=== PATIENT | female | born 2005 | race Caucasian/White ===

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

== ENCOUNTER 2024-08-22 10:33 | Emergency (ER) | payer BC ==
[~2024-08-22] VITALS: Ht 160 cm; Wt 43.6 kg
[2024-08-22 10:38] VITALS: TEMP 98.3
[2024-08-22] MEDS ORDERED: Ondansetron 4 MG/2 ML VIAL IV ONE (11:00)
[2024-08-22] MEDS ORDERED: Acetaminophen 325 MG TAB PO ONE (11:00)
[2024-08-22] MEDS ORDERED: Dicyclomine 10 MG/ML 2 ML VIAL IM ONE (11:00)
[2024-08-22] MEDS ORDERED: NS 1,000 ML IV ONE (11:00)
[2024-08-22 11:13] LABS: HEMOGLOBIN 14.9 g/dl (12.5-16.0); MEAN CELL VOLUME 84 fl (80.0-100.0); MEAN CORPUSCULAR HEMOGLOBIN 29 pg (27-31); MEAN CORPUSCULAR HGB CONC 35 g/dl (33.0-37.0); MEAN PLATELET VOLUME 8.6 fl (7.4-10.4); PLATELET COUNT 389 K/mm3 (130-400); RED BLOOD COUNT 5.12 M/mm3 (4.10-5.30); REDCELL DISTRIBUTION WIDTH-CV 13.8 % (11.5-14.5)
[2024-08-22 11:27] LABS: ALBUMIN 4.5 g/dL (3.5-5.0); BILIRUBIN,TOTAL 1.1 mg/dL (0.2-1.2); C-REACTIVE PROTEIN 2.68 mg/dL (0.00-0.50); CALCIUM 9.9 mg/dL (8.4-10.2); CREATININE, serum 0.73 mg/dL (0.57-1.11); POTASSIUM 3.7 mEq/L (3.5-4.5); TOTAL PROTEIN 7.8 g/dl (6.2-8.1)
[2024-08-22 12:11] LABS: BAND 8 % (0-10); LYMPHOCYTE 8 % (20.0-51.0); NEUTROPHILS 84 % (42.0-75.2); PLATELET ESTIMATE NORMAL (NORMAL)
[2024-08-22 12:32] LABS: COLLECTION METHOD CLEAN CATCH
[2024-08-22] MEDS ORDERED: NS 100 ML IV SCH (12:37)
[2024-08-22] MEDS ORDERED: Iohexol 300 - 100 ML VIAL IV ONE (12:38)
[2024-08-22 12:51] LABS: URINE APPEARANCE CLEAR (CLEAR/HAZY); URINE BLOOD NEGATIVE (NEGATIVE); URINE GLUCOSE NEGATIVE (NEGATIVE); URINE KETONE 3+ (NEGATIVE); URINE NITRATE NEGATIVE (NEGATIVE); URINE PROTEIN(semi-quant) 1+ (NEGATIVE)
[2024-08-22 12:54] LABS: URINE COLOR YELLOW (YELLOW)
[2024-08-22] MEDS ORDERED: BENTYL 20MG20 MG/TAB PO (13:14)
[2024-08-22] MEDS ORDERED: ZOFRAN ODT4 MG PO (13:14)
[2024-08-22 13:31] VITALS: BP 90/65; PULSE 88
== END 2024-08-22 13:39 | disposition home or self-care (01) ==
LOC: COL.ER 10:33
PROVIDERS: Emergency Medicine
DX: E86.0 Dehydration (principal); R11.2 Nausea with vomiting, unspecified; D72.829 Elevated white blood cell count, unspecified; R79.82 Elevated C-reactive protein (CRP); R31.9 Hematuria, unspecified
CPT/HCPCS: J0500; J2405; J7030; Q9967